=== PATIENT | female | born 1950 | race Caucasian/White ===

== ENCOUNTER 2016-08-05 16:36 | Emergency (ER) | payer BC ==
[2016-08-05] MEDS ORDERED: Diph,Pert(Acell),Tet Vac 0.5 ML SYR IM ONE (16:48)
[2016-08-05] MEDS ORDERED: LIDOCAINE 1% W/EPI 1:100,000 MDV 20 ML VIAL SQ ONE (16:50)
--- NOTE | 2016-08-05 16:55 | Emergency Department Record ---
History of Present Illness - General Chief Complaint: Laceration(s) Stated Complaint: LAC ON R ARM Time Seen by Provider: 08/05/16 16:46 Source: Patient Mode of Arrival: Ambulatory Limitations: No limitations - History of Present Illness Initial Commments: The patient is here due to accidentally cutting her R forearm with a razor blade knife 30 minutes ago. She denies any numbness or tingling. Her Td is not UTD. Onset/Timin -: Minutes(s) Place: Home Context: Accidental, Sharp object use Associated Symptoms: None - Related Data Hx Tetanus Toxoid Vaccination: Yes Patient Tetanus UTD (within 5 yrs): No Home Medications Medication Instructions Recorded Confirmed Last Taken Levothyroxine Sodium 75 mcg PO DAILY 08/05/16 08/05/16 Unknown Lisinopril 10 mg PO DAILY 08/05/16 08/05/16 Unknown Allergies Allergy/AdvReac Type Severity Reaction Status Date / Time codeine Allergy VOMITING Verified 08/05/16 16:45 Travel Screening - Travel/Exposure Within Last 30 Days Have you traveled within the last 30 days?: No Review of Systems Constitutional: Denies: Chills, Fever Past Medical History - SOCIAL HISTORY Smoking Status: Never smoker Alcohol Use: Occassional Drug Use: None - RESPIRATORY Hx Respiratory Disorders: No - CARDIOVASCULAR Hx Cardio Disorders: Yes Hx Hypertension: Yes - NEURO Hx Neuro Disorders: No - GI Hx GI Disorders: No - Hx Genitourinary Disorders: No - ENDOCRINE Hx Endocrine Disorders: Yes Hx Thyroid Disease: Yes (hypo) - MUSCULOSKELETAL Hx Musculoskeletal Disorders: No - PSYCH Hx Psych Problems: No - HEMATOLOGY/ONCOLOGY Hx Hematology/Oncology Disorders: No Family Medical History Any Significant Family History?: No Physical Exam - General General Appearance: Alert, Cooperative, No acute distress - Head Head exam: Atraumatic, Normocephalic, Normal inspection - Eye Eye exam: Normal appearance, PERRL - Extremities Extremities exam: negative: Normal inspection (There is a 3 cm horizontal lac to the mid medial R forearm. The R arm and hand are NVI.) Course Vital Signs 08/05/16 16:41 Temperature 98.3 F Pulse Rate [ 105 H Pulse Ox Probe] Respiratory 20 Rate Blood Pressure 147/92 [Left Arm] Pulse Ox 96 - Reevaluation(s) Reevaluation #1: Procedure note: The R arm was cleansed with sterile fashion and anesth. with 3 cc's Lido 1% with Epi. The wound was lavaged with sterile saline and explored. The lac was down to fat but not thru to the muscle. There was no FB visualized. The lac was closed with 5 4.0 nylon sutures. There were no complications. 08/05/16 17:17 Disposition Disposition: Discharge Clinical Impression: Laceration of arm Qualifiers: Encounter type: initial encounter Laterality: right Qualified Code(s): S41.111A - Laceration without foreign body of right upper arm, initial encounter Disposition: Home, Self-Care Condition: (1) Good Instructions: Laceration (ED) Additional Instructions: Keep dry for 2 days then wash daily and cover during the day. No soaking or swimming. Watch for signs of infection. Have the sutures removed in 10 days. Forms: Patient Portal Access Time of Disposition: 17:17
== END 2016-08-05 17:28 | disposition home or self-care (01) ==
LOC: ER 16:36
DX: S51.811A Laceration without foreign body of right forearm, initial encounter (principal); W45.8XXA Other foreign body or object entering through skin, initial encounter; Y92.009 Unspecified place in unspecified non-institutional (private) residence as the place of occurrence of the external cause
CPT/HCPCS: 12002; 90715; 96372; 99283

== ENCOUNTER 2016-08-15 14:49 | Emergency (ER) | payer BC ==
--- NOTE | 2016-08-15 15:05 | Emergency Department Record ---
History of Present Illness - General Chief Complaint: Suture removal Stated Complaint: REMOVE STITCHES Time Seen by Provider: 08/15/16 15:01 Source: Patient Mode of arrival: Ambulatory Limitations: No limitations - History of Present Illness Initial Comments: 66 yo female presents for suture removal. No complications or concerns as she has healed. No redness, pain or drainage MD Complaint: Suture/staple removal -: Week(s) Initial Visit For: Laceration Returns Today for: Staple/stitch removal Symptoms Since Prior Visit: No new symptoms Associated Symptoms: None - Related Data Home Medications Medication Instructions Recorded Confirmed Last Taken Levothyroxine Sodium 75 mcg PO DAILY 08/05/16 08/05/16 Unknown Lisinopril 10 mg PO DAILY 08/05/16 08/05/16 Unknown Allergies Allergy/AdvReac Type Severity Reaction Status Date / Time codeine Allergy VOMITING Verified 08/05/16 16:45 Review of Systems Constitutional: Denies: Chills, Fever Endocrine: Denies: Fatigue Musculoskeletal: Denies: Arthralgia, Joint swelling, Myalgia Skin: Denies: Bruising, Change in color, Rash Neurological: Denies: Tingling Hematological/Lymphatic: Denies: Anemia, Easy bruising, Swollen glands Past Medical History - SOCIAL HISTORY Smoking Status: Never smoker Drug Use: None - RESPIRATORY Hx Respiratory Disorders: No - CARDIOVASCULAR Hx Cardio Disorders: Yes Hx Hypertension: Yes - NEURO Hx Neuro Disorders: No - GI Hx GI Disorders: No - Hx Genitourinary Disorders: No - ENDOCRINE Hx Endocrine Disorders: Yes Hx Thyroid Disease: Yes (hypo) - MUSCULOSKELETAL Hx Musculoskeletal Disorders: No - PSYCH Hx Psych Problems: No - HEMATOLOGY/ONCOLOGY Hx Hematology/Oncology Disorders: No Physical Exam - General General Appearance: Alert, Oriented x3, Cooperative, No acute distress Limitations: No limitations - Head Head exam: Normal inspection - Eye Eye exam: Normal appearance - ENT ENT exam: Normal exam Ear exam: Normal external inspection Nasal Exam: Normal inspection Mouth exam: Normal external inspection - Neck Neck exam: Normal inspection - Cardiovascular Peripheral Pulses: 2+: Radial (R) - Rectal Rectal exam: Deferred - exam: Deferred - Extremities Extremities exam: Normal inspection, Full ROM, Normal capillary refill, Other ( Healing without redness or draiange, very slight superficial layers not everted and slight separation, deeper well healed). negative: Joint swelling, Tenderness - Neurological Neurological exam: Alert - Psychiatric Psychiatric exam: Normal affect, Normal mood - Skin Skin exam: Dry, Intact, Normal color, Warm Course - Reevaluation(s) Reevaluation #1: Sutures removed without difficulty Steri Strips placed for additional healing and support 08/15/16 15:03 Disposition Disposition: Discharge Clinical Impression: Visit for suture removal Disposition: Home, Self-Care Condition: (1) Good Instructions: Stitches Removal (ED) Additional Instructions: Return to the ED if you have fever, redness, swelling or pain Forms: Patient Portal Access Time of Disposition: 15:04
== END 2016-08-15 15:10 | disposition home or self-care (01) ==
LOC: ER 14:49
DX: Z48.02 Encounter for removal of sutures (principal)

== ENCOUNTER 2018-12-24 09:03 | Day surgery (SDC) | payer MEDICARE, BC ==
[~2018-12-24 09:03] MED LIST: ACETAMINOPHEN 1,000 MG/100 ML BTL IVPB ONE
[2018-12-24] MEDS ORDERED: LIDOCAINE 2% MDV (20MG/ML) 20ML VIAL IV ONE (09:04)
[2018-12-24] MEDS ORDERED: PROPOFOL 10 MG/ML VIAL IV ONE (09:04)
[2018-12-24] MEDS ORDERED: KETOROLAC 30 MG/ML VIAL IVP ONE (09:04)
[2018-12-24] MEDS ORDERED: ONDANSETRON HCL IV 4 MG/2 ML VIAL IVP ONE (09:04)
[2018-12-24] MEDS ORDERED: MIDAZOLAM HCL 2MG/2ML VIAL IV ONE (09:04)
[2018-12-24] MEDS ORDERED: FENTANYL PF 100MCG/2ML VIAL IV ONE (09:04)
[2018-12-24] MEDS ORDERED: SEVOFLURANE 250 ML INH ONE (09:04)
[2018-12-24] MEDS ORDERED: RINGERS SOLUTION,LACTATED 1,000 ML IV ONE (10:15)
[2018-12-24] MEDS ORDERED: BUPIVACAINE 0.25% W/EPI MPF 30ML VIAL SQ ONE (12:35)
[2018-12-24] MEDS ORDERED: HYDROCODONE/APAP 5/325MG TABLET PO PRN (13:19)
--- NOTE | 2018-12-28 12:21 | Operative Note ---
DATE OF SURGERY: 12/24/2018 SURGEON: Roosevelt Humphrey DO PREOPERATIVE DIAGNOSES: 1. Torn medial meniscus of the right knee. 2. Chondromalacia of the right knee. POSTOPERATIVE DIAGNOSES: 1. Torn medial and lateral meniscus, right knee. 2. Medial mid patella plica, right knee. 3. Osteoarthritis of right knee. OPERATION: 1. Arthroscopic partial medial and lateral meniscectomy of the right knee. 2. Arthroscopic resection of medial mid patella plica, right knee. 3. Arthroscopic chondroplasty of lateral femoral condyle and patella, right knee. DESCRIPTION OF PROCEDURE: This 68-year-old female was taken to the operating room and placed in the supine position on the operating room table. A general anesthetic was administered. The right lower extremity was elevated. It was exsanguinated and the tourniquet inflated to 300 mmHg. Arthroscopic knee garcias was subsequently applied. Right knee prepped with Hibiclens and draped in the usual sterile fashion. An inferolateral portal was established for the 4 mm arthroscope, and initial evaluation of the joint demonstrated normal appearance of the suprapatellar pouch. The patient did, however, have a thickened and fibrotic medial mid patella plica which was resected with the rotating shaver. We also identified grade 3 chondromalacia of the patella with loose fragmented articular cartilage being identified mostly in the median ridge and medial facet. The trochlea demonstrated grade 2 articular cartilage lesion throughout the entire articulating surface. The medial and lateral gutters were examined and found to be normal. The medial compartment was entered, and a complex flap and horizontal cleavage tear of the posterior horn of the medial meniscus. There was a flap on the body which was tucked underneath the meniscus which was elevated out of that position and the torn fragment resected. We re-probed the medial meniscus and found it to be stable. The tear extended in a distance of about 4 mm from the meniscosynovial junction of the posterior horn. The medial femoral condyle appeared essentially normal. The intracondylar notch was examined and found to be normal. The lateral compartment was entered, and a large grade 4 lesion of the lateral femoral condyle was present. There were loose fragments of articular cartilage present there, and this was debrided. The center portion of the lesion which was about 1 to 1.5 cm in the center of the weightbearing surface was grade 4. The remainder of the lesions surrounding it which involved essentially the entire articulating surface of the medial femoral condyle demonstrated grade 3 changes. This was debrided with what was felt to be stable articular cartilage. There were also tears of the lateral meniscus. There were radial tears of the body of the meniscus, and these were resected with a rotating shaver and further smoothed and trimmed with the basket forceps. There was a relatively large flap tear of the posterior horn to the level of the root, but the root was not torn. Once this had been resected, the wound was irrigated and suctioned, the lateral meniscus re-probe, and the articular cartilage of the lateral femoral condyle also re-probed. No additional changes or findings were present. The joint was copiously irrigated and suctioned. The instruments were removed. The portals infiltrated with 0.25% Marcaine with epinephrine. Sterile dressings applied, tourniquet and knee garcias released, and the patient taken to the recovery room in satisfactory condition. GROSS PATHOLOGY: This patient demonstrated grade 4 chondromalacia of the lateral femoral condyle as described above with grade 3 changes noted in the median ridge and medial facet of the patella and grade 2 changes noted throughout the entire articulating surface of the trochlea. Complex tears of the medial meniscus were present and flap tear present of the posterior horn of the lateral meniscus as well as several radial tears of the body of the lateral meniscus. A fibrotic medial mid patella plica was also present, which was resected in the manner described above. CANDISD
== END 2018-12-24 13:54 | disposition home or self-care (01) ==
LOC: SUR 09:03
PROVIDERS: ATTEND Orthopaedic Surgery
DX: S83.231A Complex tear of medial meniscus, current injury, right knee, initial encounter (principal); S83.281A Other tear of lateral meniscus, current injury, right knee, initial encounter; M67.51 Plica syndrome, right knee; M17.11 Unilateral primary osteoarthritis, right knee; M94.261 Chondromalacia, right knee; I10 Essential (primary) hypertension; E03.9 Hypothyroidism, unspecified; Z68.30 Body mass index [BMI] 30.0-30.9, adult
CPT/HCPCS: 29880; 29875; 01400; J1885; J2405; J3010; J7120